=== PATIENT | male | born 1980 | race Caucasian/White ===

== ENCOUNTER 2021-01-15 04:26 | Observation (INO) ==
[2021-01-15] MEDS ORDERED: Ketorolac 15 MG/ML VIAL IVP ONE (07:01)
[2021-01-15] MEDS ORDERED: 0.9 % Sodium Chloride 1,000 ML IVC ONE (07:01)
[2021-01-15] MEDS ORDERED: Piperacillin/Tazobactam 3.375 GM in 0.9 % Sodium Chloride Mini Bag 100 ML IVPB ONE (07:03)
[2021-01-15] MEDS ORDERED: Isovue-370 500 ML BOTTLE IVP ONE (07:07)
[2021-01-15 08:04] LABS: Basophils % 0.4 %; Eosinophils # 0.2 K/mcL (0.0-0.6); Eosinophils % 2.1 %; Hematocrit 39.3 % (37.5-50.1); Hemoglobin 12.8 g/dL (12.9-16.9); Immature Granulocytes % 0.2 % (0-4); Lymphocytes # 2.3 K/mcL (0.6-4.6); Lymphocytes % 23.6 %; Mean Corpuscular HGB Conc 32.6 g/dL (31.6-35.5); Mean Corpuscular Hemoglobin 27.8 pg (28.0-33.3); Mean Corpuscular Volume 85.2 fL (83.0-100.0); Mean Platelet Volume 8.4 fL (9.4-12.4); Monocytes # 1.6 K/mcL (0.0-1.3); Monocytes % 16.8 %; Neutrophils # 5.4 K/mcL (1.6-8.9); Platelet Count 269 K/mcL (140-400); Red Blood Count 4.61 M/mcL (4.19-5.50); Red Cell Distribution Width 14.5 % (11.5-14.5); Segmented Neutrophils % 56.9 %; White Blood Count 9.5 K/mcL (4.3-11.1)
[2021-01-15 08:48] LABS: BUN/Creatinine Ratio 24 (6-26); Blood Urea Nitrogen 20 mg/dL (6-20); Calcium 8.9 mg/dL (8.6-10.3); Carbon Dioxide 28 mEq/L (23-29); Chloride 104 mEq/L (98-107); Glucose 119 mg/dL (70-105); Osmolality,Calculated 294 (280-300); Potassium 3.5 mEq/L (3.5-5.1); Sodium 140 mEq/L (136-145); eGFR For African Americans > 60 (> 60); eGFR For Non-African Americans > 60 (> 60)
[2021-01-15 11:00] LABS: C-Reactive Protein 46 mg/L (Less than 10)
[2021-01-15] MEDS ORDERED: *HR* HYDROcodone/Acet 5/325 mg TABLET PO PRN (12:55)
[2021-01-15] MEDS ORDERED: Ondansetron 4 MG/2 ML VIAL IVP PRN (12:55)
[2021-01-15] MEDS ORDERED: Naloxone 0.4 MG/ML INJ IVP PRN (12:55)
[2021-01-15] MEDS ORDERED: Acetaminophen 325 MG TABLET PO PRN (12:55)
[2021-01-15] MEDS ORDERED: Melatonin 3 MG TABLET PO PRN (12:55)
[2021-01-15] MEDS ORDERED: Nicotine 2 MG GUM BC PRN (12:58)
[2021-01-15] MEDS ORDERED: *HR* LORazepam 0.5 MG TABLET PO PRN (12:59)
[2021-01-15] MEDS: Nicotine 21 MG PATCH.TD24 TD SCH (16:47)
[2021-01-15] MEDS: Lactobacillus 1 EACH CAP.SPRINK PO SCH (20:57)
[2021-01-15] MEDS: Vancomycin 1,250 MG/262.5 ML IV.SOLN IVPB SCH (20:57)
[2021-01-16 00:35] LABS: Amphetamine Screen,Urine Positive ng/mL (Cutoff=1000); Barbiturate Screen,Urine Negative ng/mL (Cutoff=200); Benzodiazepines Screen,Urine Negative ng/mL (Cutoff=200); Cannabinoid Screen,Urine Positive ng/mL (Cutoff = 50); Cocaine Screen,Urine Negative ng/mL (Cutoff= 300); Opiate Screen,Urine Negative ng/mL (Cutoff=300); Phencyclidine Screen,Urine Negative ng/mL (Cutoff=25)
[2021-01-16 03:27] LABS: Basophils % 0.5 %; Eosinophils # 0.2 K/mcL (0.0-0.6); Eosinophils % 1.9 %; Hematocrit 38.3 % (37.5-50.1); Hemoglobin 12.5 g/dL (12.9-16.9); Immature Granulocytes % 0.2 % (0-4); Lymphocytes % 23.2 %; Mean Corpuscular HGB Conc 32.6 g/dL (31.6-35.5); Mean Corpuscular Hemoglobin 27.8 pg (28.0-33.3); Mean Corpuscular Volume 85.3 fL (83.0-100.0); Mean Platelet Volume 8.3 fL (9.4-12.4); Monocytes % 11.2 %; Neutrophils # 5.3 K/mcL (1.6-8.9); Platelet Count 251 K/mcL (140-400); Red Blood Count 4.49 M/mcL (4.19-5.50); Red Cell Distribution Width 14.6 % (11.5-14.5); White Blood Count 8.5 K/mcL (4.3-11.1)
[2021-01-16 03:50] LABS: BUN/Creatinine Ratio 22 (6-26); Blood Urea Nitrogen 17 mg/dL (6-20); Calcium 8.8 mg/dL (8.6-10.3); Carbon Dioxide 26 mEq/L (23-29); Chloride 104 mEq/L (98-107); Glucose 116 mg/dL (70-105); Osmolality,Calculated 285 (280-300); Potassium 4.2 mEq/L (3.5-5.1); Sodium 136 mEq/L (136-145); eGFR For African Americans > 60 (> 60); eGFR For Non-African Americans > 60 (> 60)
[2021-01-16] MEDS: Nicotine 21 MG PATCH.TD24 TD SCH (07:47)
[2021-01-16] MEDS: Lactobacillus 1 EACH CAP.SPRINK PO SCH (07:48)
[2021-01-16] MEDS: Vancomycin 1,250 MG/262.5 ML IV.SOLN IVPB SCH (08:43)
[2021-01-16 10:30] VITALS: BP 143/78; PULSE 60; TEMP 97.4; O2SAT 95
== END 2021-01-16 17:06 | disposition home or self-care (01) ==
LOC: 3ANU 04:26 → EMEROOARM 04:26 → 3ANU 13:23
PROVIDERS: ADMIT Internal Medicine; ATTEND Internal Medicine